=== PATIENT | male | born 1970 | race Caucasian/White ===

== ENCOUNTER 2016-10-16 12:16 | Emergency (ER) | payer OTHER, MEDICAID ==
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
[2016-10-16 14:47] VITALS: BP 132/71; PULSE 81; RESP 18; TEMP 98.2; O2SAT 97
== END 2016-10-16 14:47 | disposition home or self-care (01) ==
PROC: 08QNXZZ Repair Right Upper Eyelid, External Approach (ICD-10-PCS; principal; 2016-10-16)
DX: S01.111A Laceration without foreign body of right eyelid and periocular area, initial encounter (principal); Y04.0XXA Assault by unarmed brawl or fight, initial encounter; Y92.149 Unspecified place in prison as the place of occurrence of the external cause

== ENCOUNTER 2018-09-19 08:18 | Emergency (ER) | payer MEDICAID | END 2018-09-19 09:02 | disposition home or self-care (01) ==